=== PATIENT | female | born 1960 | race Caucasian/White ===

== ENCOUNTER 2019-04-27 18:12 | Emergency (ER) | payer MEDICARE, OTHER ==
[~2019-04-27] VITALS: Ht 160 cm; Wt 71.7 kg
[2019-04-27 18:21] VITALS: BP 134/89
[2019-04-27] MEDS ORDERED: ACETAMINOPHEN 325 MG TABLET PO ONE (21:00)
[2019-04-27] MEDS ORDERED: ACETAMINOPHEN 325 MG TABLET ONE (21:21)
--- NOTE | 2019-04-27 21:47 | NUR ---
PT DC'D HOME WITH UNDERSTANDING OF INSTRUCTIONS. PT AMBULATED TO DC DESK WITHOUT DIFFICULTY.
== END 2019-04-27 21:49 | disposition home or self-care (01) ==
LOC: ED 21:43
DX: S16.1XXA Strain of muscle, fascia and tendon at neck level, initial encounter (principal); M54.6 Pain in thoracic spine; R51 Headache; J45.909 Unspecified asthma, uncomplicated; V27.3XXA Person boarding or alighting a motorcycle injured in collision with fixed or stationary object, initial encounter; Y93.89 Activity, other specified; Y92.413 State road as the place of occurrence of the external cause; Y99.8 Other external cause status; Z88.8 Allergy status to other drugs, medicaments and biological substances; Z88.2 Allergy status to sulfonamides
CPT/HCPCS: 70450; 72072; 72110; 72125; 99284

== ENCOUNTER → 2020-08-05 | Outpatient (CLI) | payer MEDICARE | END | disposition home or self-care (01) | LOC: CFH 14:38 | PROVIDERS: ATTEND Registered Nurse | DX: J44.9 Chronic obstructive pulmonary disease, unspecified (principal); Z80.1 Family history of malignant neoplasm of trachea, bronchus and lung; Z87.891 Personal history of nicotine dependence | CPT/HCPCS: 71250 ==